=== PATIENT | female | born 1940 | race Caucasian/White ===

== ENCOUNTER → 2021-09-21 | Outpatient (CLI) | payer MEDICARE, BC | LOC: LAB SHORT 13:23 → LAB 13:23 | DX: N39.0 Urinary tract infection, site not specified (principal) | CPT/HCPCS: 87077; 87086; 87186 ==

== ENCOUNTER → 2021-10-03 | Outpatient (CLI) | payer MEDICARE, BC ==
[~2021-10-03] MED LIST: CIPR500; FAMO40; OMEP20ER; Prinivil10 MG
== END | disposition home or self-care (01) ==
LOC: LAB SHORT 17:38 → LAB 17:38
DX: R30.9 Painful micturition, unspecified (principal)
CPT/HCPCS: 87086

== ENCOUNTER 2021-10-07 09:00 | Day surgery (SDC) | payer MEDICARE, BC ==
[~2021-10-07] VITALS: Ht 154.9 cm; Wt 97.4 kg
[2021-10-07] MEDS ORDERED: OMEP20ER (09:42)
[2021-10-07] MEDS ORDERED: Prinivil10 MG (09:42)
[2021-10-07] MEDS ORDERED: FAMO40 (09:43)
[2021-10-07] MEDS ORDERED: CIPR500 (09:44)
--- NOTE | 2021-10-07 13:47 | NUR ---
10/07/21 [id number] Nayana Palomares LATE ENTRY FOR TODAY DURING PROCEDURE DR. HOOVER STARTED PROCEDURE, PT WAS MOVING SLIGHTLY AND NURSE GAVE 20MG PROPOFOL, PT STARTED TO DESAT, RN PROVIDED JAW THRUST AND PT'S O2 SATS STARTED TO INCREASE. DR. HOOVER WAS CONTINUEING WITH PROCEDURE AND PT DESATED AGAIN. SCOPE REMOVED. RN CONTINUED W/JAW THRUST AND PT STARTED HAVING LARYNGOSPASMS, DR. HOOVER TOOK OVER JAW THRUST WHILE RN TONIO UP 5ML OF LIDOCAINE 2% TO BREAK LARYNGOSPASMS. PATIENT CONTINUED TO DESAT AND WAS PLACED ON HER BACK AND RN/DR. HOOVER STARTED TO BAG PT. ALLEY THOMASON RN AND DR. DE LUNA WERE CALLED INTO ROOM. PT'S O2 SATS STARTED TO INCREASE TO 99% AND AMBU BAG WAS REPLACED WITH A POM MASK AND PATIENT WAS ALLOWED TO WAKE UP. PT WAS THEN TRANSFERRED TO HER PRE-OP ROOM WHERE SHE WAS BREATHING ON HER OWN AND SATS WERE 100% ON RA. LUNGS SOUNDS WERE CLEAR T/O. PT WAS THEN REEVALUATED BY DR. DE LUNA AND THE DECISION WAS MADE TO DISCHARGE THE PATIENT HOME AND THEN PT COULD RESCHEDULE EGD AT A LATER TIME.
== END 2021-10-07 11:25 | disposition home or self-care (01) ==
LOC: ORSCSDS 09:00
PROVIDERS: Internal Medicine Gastroenterology
PROC: 0DJ08ZZ Inspection of Upper Intestinal Tract, Via Natural or Artificial Opening Endoscopic (ICD-10-PCS; principal; 2021-10-07 10:30)
DX: R13.10 Dysphagia, unspecified (principal); K31.7 Polyp of stomach and duodenum; K22.2 Esophageal obstruction; Q43.8 Other specified congenital malformations of intestine; I10 Essential (primary) hypertension; Z79.899 Other long term (current) drug therapy
CPT/HCPCS: J2704; J7120

== ENCOUNTER → 2021-10-14 | Outpatient (CLI) | payer MEDICARE, BC | END | disposition home or self-care (01) | LOC: LAB SHORT 13:20 → LAB 13:20 | DX: R30.9 Painful micturition, unspecified (principal) | CPT/HCPCS: 87086 ==

== ENCOUNTER → 2021-10-28 | Outpatient (CLI) | payer MEDICARE, BC ==
[~2021-10-28] MED LIST changes: +HYDCHL25
[2021-10-30 13:50] LABS: Candida species (DNA Probe) Negative (NEGATIVE); G. vaginalis (DNA Probe) Negative (NEGATIVE); T. vaginalis (DNA Probe) Negative (NEGATIVE)
== END | disposition home or self-care (01) ==
LOC: LAB 17:10 → LAB SHORT 17:10
PROVIDERS: Family Medicine
DX: N39.46 Mixed incontinence (principal); R30.9 Painful micturition, unspecified
CPT/HCPCS: 87480; 87510; 87660

== ENCOUNTER 2022-02-14 11:20 | Day surgery (SDC) | payer MEDICARE, BC ==
[~2022-02-14] VITALS: Ht 157.5 cm; Wt 72.1 kg
== END 2022-02-14 16:25 | disposition home or self-care (01) ==
LOC: ORSCSDS 11:20
PROVIDERS: Internal Medicine Gastroenterology
PROC: 0D758ZZ Dilation of Esophagus, Via Natural or Artificial Opening Endoscopic (ICD-10-PCS; principal; 2022-02-14 13:30)
DX: R13.10 Dysphagia, unspecified (principal); K22.2 Esophageal obstruction; K21.9 Gastro-esophageal reflux disease without esophagitis; K44.9 Diaphragmatic hernia without obstruction or gangrene; K31.7 Polyp of stomach and duodenum; I10 Essential (primary) hypertension; J45.909 Unspecified asthma, uncomplicated; Z79.899 Other long term (current) drug therapy
CPT/HCPCS: C1726; J2704; J7120